=== PATIENT | female | born 1970 | race Native Hawaiian/Other Pacific Islander ===

== ENCOUNTER 2017-01-20 14:05 | Emergency (ER) | payer SELFPAY ==
[~2017-01-20] VITALS: Ht 160 cm; Wt 59.1 kg
[~2017-01-20 14:05] MED LIST: ALBU8.5H2 INHALATION; ONDA4TAB6 PO
[2017-01-20 14:20] VITALS: BP 116/76; PULSE 72; RESP 16; O2SAT 99
--- NOTE | 2017-01-20 16:32 | ED.REPORT ---
HPI-General Illness Date of Service Jan 20, 2017 ED Provider: Rob Rodriguez MD 46 year old female presents to the ER accompanied by her complaining of headache and cough for three days. Associated symptoms include fever, nausea, and SOB with coughing. Patient denies abdominal pain, dysuria, rash, and ill contacts. Symptoms have been treated with Tylenol. She has received her influenza vaccination this year. Nursing Notes Stated Complaint: HEADACHE/COUGH Chief Complaint: FLU/Cold Symptoms Nursing Notes Reviewed: Yes Allergies: Coded Allergies: No Known Allergies (Unverified Allergy, Unknown, 09/26/15) Scheduled Albuterol HFA (Proair HFA) 8.5 Gm Hfa.aer.ad 2 PUFFS INHALATION Q4H Scheduled PRN Benzonatate (Tessalon Perle) 100 Mg Capsule 100 MG PO TID PRN PRN For Cough Ibuprofen (Ibuprofen) 600 Mg Tablet 600 MG PO QID PRN PRN For Pain Ondansetron (Zofran) 4 Mg Tablet 4 MG PO Q4H PRN PRN For Nausea Ondansetron ODT (Zofran ODT) 4 Mg Tablet 4 MG PO Q4H PRN PRN For Nausea General Time Seen by MD: 15:59 Chief Complaint Headache Hx Obtained From: Patient Arrived By: Walk-in Sudden in Onset?: No Onset Occurred: 3 days ago Symptom Duration: Since onset Location: : Head Quality: Painful Severity: Current: Moderate Severity: Maximum: Moderate Associated with: Reports: Cough, Fever, Nausea, Shortness of breath, Denies: Abdominal pain Pertinent Negative: Pt denies other symptoms Past Medical History Past Medical History None reported Past Surgical History Reports: Hysterectomy Smoking History Never Smoker Social History Alcohol Use: Denies alcohol use Drug Use: Denies drug use Ambulatory Status Independent Review of Systems Full Review of Systems Constitutional: Reports: Fever Respiratory: Reports: Non-productive cough, Shortness of breath Cardiovascular: Denies: Chest pain GI: Reports: Nausea, Denies: Abdominal pain, Constipation, Diarrhea, Vomiting Female: Denies: Dysuria Skin: Denies Rash Neurologic: Reports: Headache Complete sys rev & neg: except as marked. Physical Exam Vital Signs Vital Signs Date Time Temp Pulse Resp B/P Pulse Ox O2 Delivery O2 Flow Rate FiO2 01/20/17 18:22 36.7 79 20 123/74 100 Room Air 01/20/17 17:54 36.7 79 20 123/74 100 Room Air 01/20/17 14:20 36 72 16 116/76 99 Room Air Initial VS: Reviewed Head / Eyes: Atraumatic, Normocephalic Neck: Supple, Non-tender, Full range of motion Extremities: Vascular intact, Neuro intact, No swelling, No tenderness Skin: Warm, Dry, No cyanosis Neurologic: Alert, Oriented, Nonfocal General/Constitutional: Awake, Alert, Well developed, Well nourished ENT: Airway patent, Mucous membranes moist, Pharynx NL Respiratory / Chest: Breath sounds NL, No respiratory distress, No rales, No rhonchi, No wheezing Cardiovascular: Heart rate NL, Regular rhythm, Heart sounds NL, Cap refill not delayed, Peripheral circulation NL Abdomen: Soft, Non-tender, No guarding, No rebound, No distention Interpretation & Diagnostics X-Ray Chest Interpretation Chest Xray Interpretation: IMPRESSION: No acute cardiopulmonary disease. Dictated by: Dalton Mercado M.D. on 01/20/2017 at 17:36 Approved by: Dalton Mercado M.D. on 01/20/2017 at 17:37 View: AP & lat Interpretation / Wet Read by: Interpret - Radiologist Re-Eval/Medical Decision Med Decision/Clinical Course 46 year old female presents to the ER accompanied by her complaining of headache and cough for three days. Associated symptoms include fever, nausea, and SOB with coughing. Here in the emergency department the patient is afebrile stable vital signs and examination as above. CXR: Obtained, reviewed and interpreted by myself shows no evidence of acute infiltrates, effusions or pneumothorax. Cardiac and mediastinal silhouette normal. No bony or soft tissue abnormalities. Patient was treated with the below medications: Zofran Ibuprofen Thereafter patient reported significant subjective improvement. Influenza was negative. No evidence at this time of significant bacterial infection or pneumonia. Overall constellation of symptoms suggestive of upper respiratory infection. I see no indication for admission or further workup at this moment. Patient prescribed Zofran for nausea and Tessalon for cough. She will drink plenty of fluids and rest and follow up closely with his primary care physician. Follow-up and return precautions were reviewed in detail and she was discharged in good condition. Source of Hx: Old records Time of Eval: 18:10 Re-Evaluation/Progress Note: Discussed lab and radiology results and plan to discharge. Patient understands and agrees to the plan. Return precautions given. All other questions addressed. Counseled Regarding: Diagnosis, Lab results, Need for follow-up, When/why to return to ED Discharge & Departure Primary Impression: Upper respiratory infection URI type: unspecified URI Qualified Code: J06.9 - Acute upper respiratory infection, unspecified Additional Impressions: Cough Nausea Flu-like symptoms Disposition: Home Discharge Condition All VS Reviewed: Yes Condition: Stable Patient Instructions: Upper Respiratory Infection (DC) Additional Instructions: Thank you for seeking care at emergency room. It is difficult for us to make definitive diagnoses in the ED but we believe that you are experiencing an upper respiratory infection. Our primary goal today in the ED was to evaluate you for any life-threatening conditions. Your evaluation was reassuring. You will be discharged with a prescription for Tessalon perle and Zofran. Please take as directed. Drink plenty of fluids. You should follow-up with your primary doctor this week. You should return to the ED immediately if you develop high fever, chills, vomiting, shortness of breath, chest pain, or any other concerning signs or symptoms. Thank you for letting us partake in your care today. Referrals: [facility] (PCP) Xi Attestation Portions of this note were transcribed by Murali Looney. I, Dr. Rodriguez, personally performed the history, physical exam and medical decision-making; I reviewed and confirmed the accuracy of the information in the transcribed note. Signed by: Xi Caba, 01/20/2017 and 18:11 copies to: [facility] Beck O MD Jan 20, 2017 16:32 MURALI LOONEY Jan 20, 2017 17:12
[2017-01-20] MEDS ORDERED: IBUP-1827 PO (17:16)
[2017-01-20] MEDS ORDERED: BENZ-12 PO (17:16)
[2017-01-20] MEDS ORDERED: ONDA4TAB9 PO (17:16)
--- NOTE | 2017-01-20 17:37 | DRSVH ---
PROCEDURE: X-RAY CHEST, TWO VIEWS ([id number]) INDICATIONS: 46 year-old female with 3-4 days of cough. TECHNIQUE: 2 views of the chest were acquired. COMPARISON: [facility], CR, XR CHEST 1VW (PORTABLE), 11/15/2016, 18:32. [facility], CR, XR CHEST 1VW (PORTABLE), 11/10/2016, 9:18. FINDINGS: Surgical changes and devices: None. Lungs and pleura: No pleural effusions or pneumothorax. Lungs are clear. Mediastinum: Mediastinal contours are normal. Heart size is normal. Bones and chest wall: No suspicious bony abnormalities. Soft tissues appear unremarkable. IMPRESSION: No acute cardiopulmonary disease. Dictated by: Dalton Mercado M.D. on 01/20/2017 at 17:36 Approved by: Dalton Mercado M.D. on 01/20/2017 at 17:37
[2017-01-20 17:54] VITALS: BP 123/74; PULSE 79; RESP 20; O2SAT 100
[2017-01-20 18:22] VITALS: BP 123/74; PULSE 79; RESP 20; O2SAT 100
== END 2017-01-20 18:28 | disposition home or self-care (01) ==
LOC: SED 14:05
DX: J06.9 Acute upper respiratory infection, unspecified (principal); R11.0 Nausea; R06.02 Shortness of breath

== ENCOUNTER 2017-01-26 09:54 | Emergency (ER) | payer SELFPAY ==
[~2017-01-26 09:54] MED LIST changes: +BENZ-12 PO; +IBUP-1827 PO; +ONDA4TAB9 PO
[2017-01-26 09:58] VITALS: BP 98/67; PULSE 80; RESP 14; O2SAT 97
--- NOTE | 2017-01-26 10:27 | ED.REPORT ---
HPI-URI / Cough / Cold Date of Service Jan 26, 2017 ED Provider: Zahida Everett MD The patient is a 46 year old female who presents to the emergency department complaining of upper respiratory infection symptoms that have been ongoing over the last 2 weeks. She has experienced a cough, congestion, post-tussive emesis, right ear fullness, left ear tinnitus, shortness of breath, and dizziness. Her symptoms have worsened over the last few days and she has developed abdominal pain and diarrhea. She was seen in the emergency department last week and was discharged home with Zofran and Geovanny beltran. She has been taking Ibuprofen with some relief. She denies chest pain, hemoptysis, fever, chills or bloody stools. She does not smoke tobacco. She did get a flu shot in the fall. Nursing Notes Stated Complaint: COUGH/ABDOMINAL PAIN Chief Complaint: Respiratory Complaints Nursing Notes Reviewed: Yes Allergies: Coded Allergies: No Known Allergies (Unverified Allergy, Unknown, 09/26/15) Scheduled Albuterol HFA (Proair HFA) 8.5 Gm Hfa.aer.ad 2 PUFFS INHALATION Q4H Azithromycin (Zithromax) 250 Mg Tablet 250 MG PO DAILY 2 pills now, then one a day for 4 more days Scheduled PRN Benzonatate (Tessalon Perle) 100 Mg Capsule 100 MG PO TID PRN PRN For Cough Ibuprofen (Ibuprofen) 600 Mg Tablet 600 MG PO QID PRN PRN For Pain Ondansetron (Zofran) 4 Mg Tablet 4 MG PO Q4H PRN PRN For Nausea Ondansetron ODT (Zofran ODT) 4 Mg Tablet 4 MG PO Q4H PRN PRN For Nausea General Time Seen by MD: 10:10 Chief Complaint Upper resp infection Hx Obtained From: Patient Arrived By: Walk-in Onset Occurred: More than a week ago... Symptom Duration: Since onset Location: : Ear right Quality: Painful Severity: Current: Moderate Severity: Maximum: Moderate Recent Healthcare: No recent hospitalization, Recent doctor visit Similar Sx Previous: Yes Past Medical History Past Medical History None reported Past Surgical History Reports: Hysterectomy Family History Noncontributory Smoking History Never Smoker Social History Alcohol Use: Denies alcohol use Drug Use: Denies drug use Other Social History: Good social support, , Local resident Ambulatory Status Independent Review of Systems Constitutional: Denies: Chills, Fever Ears / Nose / Throat: Reports: Ear ringing left, Earache right, Nasal congestion Respiratory: Reports: Prod cough, yellow, Shortness of breath GI: Reports: Abdominal pain, Diarrhea, Vomiting (post-tussive), Denies: Bloody/tarry stool, Hematemesis, Hematochezia, Melena, Nausea Skin: Denies Rash Neurologic: Reports: Dizziness Complete sys rev & neg: except as marked. Physical Exam Initial Vital Signs Vital Signs (First) Date Time Temp Pulse Resp B/P Pulse Ox O2 Delivery O2 Flow Rate FiO2 01/26/17 09:58 36.2 80 14 98/67 97 Room Air Initial VS: Reviewed Head / Eyes: Atraumatic, Normocephalic, PERRL Neck: Supple, Non-tender, Full range of motion Cardiovascular: Regular rate & rhythm, Heart sounds normal, Intact distal pulses Abdomen / GI: Soft, Non-tender, No guarding, No rebound, No distention Lymphatic: No lymphadenopathy Extremities: Vascular intact, Neuro intact, No swelling, No tenderness Skin: Warm, Dry, No cyanosis Neurologic: Alert, Oriented, Nonfocal Psychiatric: Mood/affect normal, Behavior normal, Normal thought content General/Constitutional: Awake, Alert, Cooperative ENT: Airway patent Right Ear / Mastoid: Positive: Fluid behind TM clear, Negative: Tympanic membrane bulging, Tympanic membrane red Left Ear / Mastoid: Positive: Fluid behind TM clear, Negative: Tympanic membrane bulging, Tympanic membrane red Respiratory / Chest: Breath sounds = bilat, No respiratory distress, No chest tenderness, No chest wall deformity Wheezing / Retractions: Positive: Wheezing mild (diffuse) Crackles and rhonchi on the right axillary line. Breath sounds do improve with deep breathing. Re-Eval/Medical Decision Source of Hx: Old records Re-Evaluation/Progress : Time of Eval: 10:37 Re-Evaluation/Progress Note: Discussed exam findings, diagnosis, and plan for discharge. All questions were addressed. Counseled Regarding: Diagnosis, Need for follow-up, When/why to return to ED Discharge & Departure Impression: Primary Impression: Pneumonia Pneumonia type: due to unspecified organism Laterality: bilateral Lung location: unspecified part of lung Qualified Code: J18.9 - Pneumonia, unspecified organism Additional Impression: Middle ear effusion Laterality: bilateral Qualified Code: H65.93 - Unspecified nonsuppurative otitis media, bilateral Ruled Out: Otitis media Disposition: Home Discharge Condition All VS Reviewed: Yes Condition: Stable Patient Instructions: Community-acquired Pneumonia (ED) Additional Instructions: Thank you for entrusting us with your care today. During your visit, you were treated for pneumonia, an infection of the lungs. You received a breathing treatment while in the ER, and we prescribed you an antibiotic to take at home, azithromycin for 5 days - follow the instructions in the packet. A prescription for this was electronically sent to [email or web address] [place] today. We also encourage you to rest, drink lots of fluids, and take Ibuprofen as needed for your ear pain and the aching all over. If your condition worsens, please do not hesitate to return to the Emergency Department or contact your primary care physician (PCP) for further care. We do recommend you make an appt. with your PCP within the week to follow-up on your improvement. [facility] Scribe Attestation Portions of this note were transcribed by Peggy Calderón. I, Dr. Everett personally performed the history, physical exam and medical decision-making; I reviewed and confirmed the accuracy of the information in the transcribed note. Signed by: Xi Dimas, 01/26/2017 at 1100. copies to: [facility] Shawna L MD Jan 26, 2017 10:27 Peggy Calderón Jan 26, 2017 10:34
[2017-01-26] MEDS ORDERED: Albuterol 2.5 mg/3 mL Inhalation Solution NEB ONE (10:35)
[2017-01-26 10:58] VITALS: PULSE 81; RESP 16; O2SAT 96
[2017-01-26] MEDS ORDERED: ZIT250 PO (11:18)
[2017-01-26 11:31] VITALS: BP 102/66; PULSE 68; RESP 16; O2SAT 96
== END 2017-01-26 11:31 | disposition home or self-care (01) ==
LOC: SED 09:54
DX: J18.9 Pneumonia, unspecified organism (principal); H74.8X3 Other specified disorders of middle ear and mastoid, bilateral; R09.81 Nasal congestion; R11.10 Vomiting, unspecified; R42 Dizziness and giddiness; R10.9 Unspecified abdominal pain; R19.7 Diarrhea, unspecified
CPT/HCPCS: 94664; 99283; J7613